=== PATIENT | male | born 1940 | race Asian ===

== ENCOUNTER 2025-06-29 05:42 | Observation (INO) | payer MEDICARE ==
--- NOTE | 2025-06-27 11:20 | EKG ---
[facility] Test Date: 2025-06-27 Test Time: 11:05:26 Pat Name: ANI RIVERO Department[facility] Room: Gender: M Sap Basis: [id number] : 1940 Requested By: HOANG NAIR Order Number: [id number] Reading MD: Ziggy Mohr Measurements Intervals [place] Rate: 54 P: 45 FL: 210 QRS: -78 QRSD: 82 T: 45 QT: 421 QTc: 401 Interpretive Statements Sinus rhythm LEFT AXIS DEVIATION No previous ECG available for comparison Electronically Signed On 06-28-2025 15:45:39 CDT by Ziggy Mohr Please click the below link to view image of tracing.
[2025-06-27 11:21] LABS: IMMATURE GRANULOCYTE ABSOLUTE 0.01 K/uL (0-1); NUCLEATED RED BLOOD CELLS 0.0 % (0.0-0.19); PLATELET COUNT (AUTO) 196 K/uL (130-400); RED BLOOD CELL COUNT(AUTO) 3.74 MIL/uL (4.50-6.20); RED CELL DISTRIBUTION WIDTH 13.2 % (11.0-15.5); WHITE BLOOD COUNT (AUTO) 3.9 K/uL (4.8-10.8)
[2025-06-27 11:27] VITALS: BP 122/66; PULSE 60; RESP 13; TEMP 97.2
[2025-06-27 11:32] LABS: CREATININE 1.0 mg/dL (0.5-1.3); GLOMERULAR FILTR. RATE CALC 74.0 mL/min (>90); GLUCOSE,RANDOM 95.0 mg/dL (70-105); SODIUM SERUM 139.0 mmol/L (136-145); UREA NITROGEN, BLOOD 15.0 mg/dL (7-18)
[2025-06-27 11:34] LABS: INR 1.08 (0.85-1.15)
[2025-06-27 12:01] LABS: APPEARANCE,URINE CLEAR (CLEAR); GLUCOSE, URINE (UA) NEGATIVE (NEGATIVE); LEUKOCYTE ESTERASE ,URINE NEGATIVE Leu/uL (NEGATIVE); NITRATE,URINE NEGATIVE (NEGATIVE); OCCULT BLOOD,URINE NEGATIVE (NEGATIVE)
[2025-06-27 12:10] LABS: ADD UA MICROSCOPIC NO
--- NOTE | 2025-06-28 11:07 | NUR ---
RE: EKG REPORTED EKG RESULTS TO DR HODGE, NO NEW ORDERS RECEIVED.
[2025-06-29] VITALS (21 sets, daily range): BP systolic 106–157; BP diastolic 69–98; PULSE 63–110; RESP 12–18; TEMP 96.5–98.2; O2SAT 98–99
[~2025-06-29] VITALS: Ht 167.6 cm; Wt 73.6 kg
[~2025-06-29 05:42] MED LIST: LEVO25TA54 PO; ROSU20TA98 PO; TAMS-55 PO
[2025-06-29] MEDS: LACTATED RINGERS 1000ML 1,000 ML IV ONE (06:24)
[2025-06-29] MEDS ORDERED: LIDOCAINE 1%-EPI 1:100,000 20 ML VIAL ONE (07:20)
[2025-06-29] MEDS ORDERED: LIDOCAINE PF 100MG/5ML (2%) SYRINGE 5ML ONE (07:21)
[2025-06-29] MEDS ORDERED: SUCCINYLCHOLINE CHLORIDE 20 MG/ML 10 ML VIAL ONE (07:21)
[2025-06-29] MEDS ORDERED: VANCOMYCIN 1G/250ML KIT 250 ML IV ONE (07:21)
[2025-06-29] MEDS ORDERED: TRANEXAMIC ACID 1000MG/10ML ONE ×2 (07:21→07:25)
[2025-06-29] MEDS ORDERED: methylPREDNISolone aceTATE 40 MG/ML VIAL ONE (07:22)
[2025-06-29] MEDS ORDERED: THROMBIN-JMI 20000 UNIT KIT TP ONE (07:22)
[2025-06-29] MEDS ORDERED: GLYCOPYRROLATE 0.2 MG/ML 5 ML VIAL ONE (07:23)
[2025-06-29] MEDS ORDERED: NEOSTIGMINE METHYLSULFATE 1MG/ML IV ONE (07:23)
[2025-06-29] MEDS ORDERED: MIDAZOLAM HCL 1 MG/ML 2ML VIAL ONE (07:27)
[2025-06-29] MEDS: SUGAMMADEX SODIUM 200 MG/2 ML VIAL IV ONE (07:59)
[2025-06-29] MEDS: FAMOTIDINE 20MG VIAL IV ONE (08:00)
[2025-06-29] MEDS: THROMBIN-JMI 20000 UNIT KIT TP ONE (08:32)
[2025-06-29] MEDS: BACITRACIN 28.4 GM OINT TP ONE (08:32)
[2025-06-29] MEDS: LIDOCAINE 1%-EPI 1:100,000 20 ML VIAL IJ ONE (08:32)
[2025-06-29] MEDS ORDERED: NEOMY SULF/BACITRAC ZN/POLY OINT 30GM TUBE TP ONE (11:30)
--- NOTE | 2025-06-29 12:50 | NUR ---
PATIENT REPORT RECEIVED REPORT FROM PACU NURSE CAROL. PATIENT UNDERWENT HEMILAMINOTOMY WITH DECOMPRESSION WITH DR. NAIR. PATIENT AWAKE AND ALERT. BLOOD PRESSURE 117/68, O2 99% ON 2L, HR 75. ANCEF, ZOFRAN, TYLENOL AND DILAUDID ORDERED FOR PATIENT.
--- NOTE | 2025-06-29 12:53 | OP ---
DATE OF PROCEDURE: 06/29/2025 INDICATIONS: The patient is an 85-year-old male with history of lumbar canal stenosis, spondylosis, and intractable right L3, L4, and L5 radiculopathy mostly to the right side for which he was advised to agree on consent thereafter he failed to improve with conservative treatment. PREOPERATIVE DIAGNOSIS: Lumbar spondylosis with intractable radiculopathy, L3-L4, L4-L5. POSTOPERATIVE DIAGNOSIS: Lumbar spondylosis with intractable radiculopathy, L3-L4, L4-L5. PROCEDURE: Posterior decompressive hemilaminotomies L3-L4, L4-L5. SURGEON: Roger Mccullough M.D ESTIMATED BLOOD LOSS: Less than 100 mL. COMPLICATIONS: No intraoperative complication. FINDINGS: There was evidence of marked hypertrophic ligamentum flavum with stenosis and foraminal stenosis with a small disk osteophyte complex on the right side at L3-L4. The patient tolerated the procedure well. EMG, SSEP remained baseline. Sponge count, needle count, cottonoid count were reported complete at the end of procedure. DESCRIPTION OF PROCEDURE: The patient was brought to the operating room and adequate general endotracheal anesthesia was achieved. IV antibiotics were given. Thereafter, the patient underwent placement of DVT garments and the needle for the EMG, SSEP and he was positioned prone with adequate padding to a pressure area. The back was extensively prepped and draped in the usual sterile fashion. A midline incision was done with bipolar coagulation continued dissection done. I was able to expose the lamina of L3-L4 and L4-L5. Once adequate exposure of the lamina, then I used the drill to start the hemilaminotomy at L3-L4, which was done bilaterally preserving the spinous processes. Once adequate thinning of the bone was achieved, I was able to visualize some of the ligamentum flavum this was dislodged with the upward curette and then I used multiple sizes of Kerrison rongeurs, #2, #3, occasionally #4, as well as the banana Kerrison to decompress the thecal sac bilaterally and into the foramen as well, for which I used the Olivecrona to assess the decompression along the foramen and nerve root of L3 as well as L4. Valsalva maneuver asked for. No evidence of inadvertent durotomy noted. Wound was irrigated. A small amount of Gelfoam with cottonoid pads were placed. Then the same was done at the L4-L5 where the retractors were repositioned and then the drill was used and once adequate hemilaminotomies were achieved with the drill, bone was achieved for hemostasis. Upward curette dislodging the ligamentum flavum and this was removed in a piecemeal fashion, achieving adequate decompression as well into the foramen with the banana Kerrison and Kerrison rongeur #2, #3, and occasionally #4. Again, the Olivecrona was used with adequate decompression. Hemostasis was achieved with judicious bipolar coagulation, Avitene and Gelfoam. Multiple Valsalva maneuvers were asked for and there was no evidence of CSF leak. No durotomy noted. Upon inspection, copious irrigation was done with bacitracin solution. The wound was somewhat sprinkled with antibiotic powder, Marcaine to the paraspinal muscles, and intrathecal block with 50 mcg of fentanyl and 3 mL of spinal Marcaine were placed in the intraarticular space at the L3-L4. Thereafter, the wound was closed in anatomical layers with Vicryl 1 in multiple layers, thereafter Vicryl 2 as well, and then subcuticular stitch and Dermabond for the skin. The patient tolerated the procedure well. There were no complications. Family members were addressed. EMG, SSEP remained baseline. TID: [id number] RECEIPT: [id number]
--- NOTE | 2025-06-29 13:10 | NUR ---
UNIT ARRIVAL. RECEIVED PATIENT FROM PACU NURSE. PATIENT AWAKE AND ALERT. FAMILY AT BEDSIDE. PATIENT REPORTS NO PAIN AT THIS TIME. DRESSING TO LOWER BACK CLEAN DRY AND INTACT. SCD'S APPLIED. RT NOTIFIED.
--- NOTE | 2025-06-29 14:51 | HMCIMG ---
EXAM: LUMBAR SPINE 2-3VWS REASON: HEMILAMINECTOMY L3-4, L4-5 DECOMP. COMPARISON: None. TECHNIQUE: 6 views of the lumbar spine were obtained. FINDINGS: 6 C-arm images demonstrate patient undergoing L3-L4 and L4-L5 hemilaminectomy laminectomy and decompression surgery. Fluoroscopy time 9 seconds IMPRESSION: 1. Details of the finding in the operative notes.
[2025-06-29] MEDS: 0.9%NACL 1000ML 1,000 ML IV SCH (18:19)
[2025-06-30] VITALS: BP 119/42; PULSE 107; RESP 18; TEMP 98.1
[2025-06-30 04:00] VITALS: BP 133/84; PULSE 88; RESP 18; TEMP 98.1
--- NOTE | 2025-06-30 07:30 | NUR ---
PATIENT DISCHARGE SPOKE WITH DR. NAIR REGARDING PATIENT STATUS. PER DR. NAIR PATIENT IS GOOD TO DISCHARGE HOME. NO STRENUOUS ACTIVITY, BEDREST MUCH POSSIBLE.
[2025-06-30 08:37] VITALS: BP 139/72; PULSE 101; RESP 18; TEMP 97.4
[2025-06-30 09:03] VITALS: O2SAT 93
--- NOTE | 2025-06-30 10:40 | NUR ---
[facility] CM MET WITH PT AND SPOUSE THIS MORNING, INITIAL ASSESSMENT DONE. PATIENT IS INDEPENDENT PRIOR TO SURGERY, LIVES AT HOME WITH HIS . PATIENT HAS A WALKER, SHOWER CHAIR AVAILABLE AT HOME IF NEEDED. FEELS SAFE TO GO BACK HOME, STILL DRIVE, AND FAMILY ABLE TO ASSIST WITH TRANSPORTATION NECESSARY. DCP HOME ONCE STABLE. CM TO CONTINUE TO FOLLOW UP. Addendum: 06/30/25 at 1246 by DEVIN HART LVN CM Amended: Links added.
--- NOTE | 2025-06-30 12:00 | NUR ---
PATIENT DISCHARGE PATIENT DISCHARGED. PERIPHERAL IV REMOVED. CATHETER INTACT. DISCHARGE INSTRUCTIONS GIVEN. NO NEW PRESCRIPTIONS. PATIENT TO CONTINUE HOME MEDICATIONS NO BLOOD THINNERS. DR. NAIR OFFICE TO SEND MEDICATION FOR PAIN TO PHARMACY. PATIENT AWARE TO F/U WITH PCP AND DR. NAIR. ALL QUESTIONS ANSWERED. PATIENT REPORTS PAIN 5/10 TYLENOL #3 ADMINISTERED. DRESSING TO LOWER BACK CLEAN DRY AND INTACT. PATIENT TAKEN DOWN BY WHEELCHAIR. ALL BELONGINGS SENT WITH PATIENT.
== END 2025-06-30 12:00 | disposition home or self-care (01) ==
LOC: DAH 05:42 → DAHIP 05:43 → INTOOBSV 05:43 → DAH 05:43 → 4AH 13:10
PROVIDERS: ADMIT Neurological Surgery; ATTEND Neurological Surgery
DX: M48.061 Spinal stenosis, lumbar region without neurogenic claudication (principal); M54.16 Radiculopathy, lumbar region; M25.78 Osteophyte, vertebrae; M47.819 Spondylosis without myelopathy or radiculopathy, site unspecified; R79.1 Abnormal coagulation profile; Z79.899 Other long term (current) drug therapy; Z98.890 Other specified postprocedural states
CPT/HCPCS: 80048; 85025; 85610; 85730; 86850; 86900; 86901; 81003; 36415; 93005; 63030; 63035; 72100; G0378 ×30; A4510; J3260 ×2; A4223 ×2; A4600; A4663; J7120 ×2; A4649 ×3; J3373 ×2; J3490 ×10; J3010 ×4; J1100; J0330; J0665 ×3; J2003; J2250; J2704; J2405; J2710; J1010 ×2; J0690 ×4; C1762; A4930; A4215; A4213; A4222; A4221; A4216; J1171